=== PATIENT | female | born 1945 | race Caucasian/White ===

== ENCOUNTER → 2017-01-30 | Outpatient (CLI) | payer MEDICARE, BC | LOC: MC.RAD 08:52 | DX: Z12.31 Encounter for screening mammogram for malignant neoplasm of breast (principal); Z80.3 Family history of malignant neoplasm of breast ==

== ENCOUNTER → 2018-02-03 | Outpatient (CLI) | payer MEDICARE, BC | LOC: MC.RAD 09:16 | DX: Z12.31 Encounter for screening mammogram for malignant neoplasm of breast (principal) ==

== ENCOUNTER → 2019-02-09 | Outpatient (CLI) | payer MEDICARE, BC | LOC: MC.RAD 09:09 | DX: Z12.31 Encounter for screening mammogram for malignant neoplasm of breast (principal) ==

== ENCOUNTER → 2019-08-14 | Outpatient (CLI) | payer MEDICARE, BC ==
--- NOTE | 2019-08-13 09:39 | NUR ---
no answer no machine.
[2019-08-14] VITALS (10 sets, daily range): BP systolic 138–165; BP diastolic 60–88; PULSE 68–95
[~2019-08-14] VITALS: Ht 157.5 cm; Wt 62.7 kg
[~2019-08-14] MED LIST: ACTONEL 35MG TA35 MG PO; CALTRATE-600 W600 MG PO; OCUVITE1 TA1 PO
--- NOTE | 2019-08-14 13:15 | NUR ---
pt to ct per ambulation. Pt placed supine on table. Monitors applied.
--- NOTE | 2019-08-14 13:30 | NUR ---
Specimens obtained by Dr Ramirez and placed in formalin. Specimen labeled.
--- NOTE | 2019-08-14 14:30 | NUR ---
pt out to car per wheelchair, denies pain at this time. Bandaid continues unchanged. Pt up and into car without difficulty. Copy of discharge instructions given to pt.
== END ==
LOC: COL.RAD 11:04
DX: K76.9 Liver disease, unspecified (principal)

== ENCOUNTER → 2021-08-01 | Outpatient (CLI) | payer MEDICARE, BC ==
--- NOTE | 2021-07-27 12:18 | NUR ---
UNABLE TO REACH PATIENT, UNABLE TO LEAVE MSG, PHONE RANG BUSY X2
[~2021-08-01] VITALS: Ht 157.5 cm; Wt 62.0 kg
[2021-08-01] VITALS (14 sets, daily range): BP systolic 109–128; BP diastolic 59–77; PULSE 73–102; TEMP 98.6
[~2021-08-01] MED LIST changes: +ALDACTONE 25MG25 M1 PO; +B-12 500 MCG PO; +IMODIUM 2MG CAPS2 MG PO; +LASIX 40MG TABL40 MG PO; +TUMS500 MG PO; +TURMERIC500 MG PO; +TYLENOL 500MG500 MG PO; +VITAMIN E1000 U/CAP PO; +[UNRECOGNIZED DRUG - OTHER] PO
--- NOTE | 2021-08-01 14:28 | NUR ---
Pt to room per wheelchair. Pt positioned on table in supine position. Monitors applid and O2 on at 2l/nc.
--- NOTE | 2021-08-01 14:55 | NUR ---
Drain in place. Dr Ramirez finishing up dressing. Pt connected to suction. Yellow drainage being removed from abdomen.
== END ==
LOC: COL.RAD 13:12
DX: C18.9 Malignant neoplasm of colon, unspecified (principal); C78.7 Secondary malignant neoplasm of liver and intrahepatic bile duct